=== PATIENT | male | born 1975 | race Caucasian/White ===

== ENCOUNTER 2016-05-11 17:54 | Emergency (ER) | payer OTHER ==
[~2016-05-11] VITALS: Ht 172.7 cm; Wt 73.9 kg
[2016-05-11] MEDS ORDERED: SINGULAIR10 MG PO (18:51)
[2016-05-11] MEDS ORDERED: FLONASE 50 MCG16 GM (18:52)
--- NOTE | 2016-05-11 19:17 | [facility] Report ---
History of Present Issue Date/Time Seen by Provider 05/11/16 2947 Visit Reason Pt arrived:Walked Presenting Problem:c/o flu like symptoms x 1 day Location if Accident: Onset of symptoms date/time:/ or onset unknown for:MEDICAL HX UNKNOWN Have you (or family members/close friends) recently traveled outside the [place]? N If Yes, where/when: Have you had exposure to infectious disease within the past month? TB? Other? Specify: c/o fever, bodyaches, chills, sore throat starting late last night. Not sure how high fever is, hasn't checked. Denies cough. Started to feel nauseated when eating earlier today so just didn't eat anymore and nausea resolved. Advil helped this morning but just had 2 hours ago and hasn't helped. No known sick contacts. Pain worse w/ swallowing. Denies any difficulty swallowing, "just pain " Source patient Exam Limitations no limitations ALLERGIES Coded Allergies: No Known Allergies (05/11/16) Home Medications Reported Medications Montelukast Sodium (Singulair) 10 MG PO QHS Fluticasone Propionate (Flonase 50 Mcg Nasal [place]) 1 SPRAY NA BID History Medical History General Diabetes? No Immunization HX DT/Tetanus Unknown Surgical Hx Previous Surgery?Y appedectomy Social History Smoking Hx Smoker: Never Smoker Tobacco: No Alcohol Alcohol: No Review of Systems All Other Systems Reviewed and Negative Constitutional see HPI, chills, malaise Eyes denies no symptoms reported ENT see HPI. denies: ear pain, nose congestion. Respiratory see HPI, denies shortness of breath Cardiovascular denies no symptoms reported Gastrointestinal see HPI, denies vomiting Musculoskeletal see HPI Skin denies rash Psychiatric/Neurological headache Physical Exam Vital Signs Vital Signs Date Time Temp Pulse Resp B/P Pulse O2 O2 Flow FiO2 Ox Delivery Rate 05/11 2046 100.1 101 16 125/80 95 05/11 1848 101.7 119 20 141/94 100 General Appearance no apparent distress, obviously doesn't feel well, nearly asleep in waiting room, immediately laid down on exam table and closed eyes when entered room Eye Exam - bilateral eye normal exam Ear, Nose, Throat pharyngeal erythema, tonsillar exudate, bilateral EACs and TMs normal, normal nares Neck non-tender, supple Respiratory Status No: respiratory distress (no cough). Lung Sounds anterior: lungs clear. posterior: lungs clear. bilateral: lungs clear. Cardiovascular regular rate/rhythm, no murmur Neurologic alert Skin warm/dry Lymphatic anterior cervical lymph nodes swollen, < 1cm, soft, tender, mobile Medical Decision Making LABS/Meds/Orders Pt receiving controlled substance in ED? No Results/Orders Laboratory Tests 05/11/161916: Influenza Type A Ag NOT DETECTED, Influenza Type B Ag NOT DETECTED, Group A Strep Screen NOT DETECTED Current Medication Orders Sig/Jaki Start time Last Medication Dose Route Stop Time Status Admin Lidocaine HCl 0 .STK-MED ONE 05/11 2015 DC IJ Ceftriaxone Sodium 1 GM ONCE ONE 05/11 2014 DC 05/11 IM 05/11 Lidocaine HCl 2.1 ML ONCE ONE 05/11 2014 DC 05/11 IM 05/11 Ceftriaxone Sodium 0 .STK-MED ONE 05/11 2012 DC .ROUTE Ceftriaxone Sodium 0 .STK-MED ONE 05/11 2006 DC .ROUTE Lidocaine HCl 0 .STK-MED ONE 05/11 2005 DC IJ Acetaminophen 0 .STK-MED ONE 05/11 1933 DC PO Acetaminophen 1,000 MG ONCE ONE 05/11 1914 DC 05/11 PO 05/11 1915 193 Orders Procedure Date/time Status UTC STREP SCREEN 05/11 1916 Complete UTC FLU A,B 05/11 1916 Complete Progress UT Progress Notes Date 05/11/16 Time 2002 Comment Discussed neg flu and strep w/ pt. Concerned re; throat examine and symptoms. Pt reports "I never test positive day one". Offered to send throat culture but pt declined. No pharmacy open tonight. 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 Departure Departure Time of Disposition 2023 Disposition DC Home or Self Care(routine) Clinical Impression Primary Impression: Acute tonsillitis Qualifiers: Pharyngitis/tonsillitis etiology: unspecified etiology Qualified Code: J03.90 - Acute tonsillitis, unspecified Secondary Impressions: Fever Qualifiers: Fever type: unspecified Qualified Code: R50.9 - Fever, unspecified Condition STABLE Patient Instructions DI for Strep Throat Additional Instructions Based on your exam and symptoms, you are highly suspicious for strep throat Suggested strep culture, pt declined. Increase fluids Rest. Alternate tylenol/ibuprofen for pain/fever Cold liquids Sore throat lozenges FU immediately for any new or worsening symptoms FU if no noticeable improvement over the next 48 hours. Start antibiotic pills tomorrow. Discharge Counseling Counseled pt/family regarding diagnosis, test results, medications/RX, home care, follow up needs Prescriptions Current Visit Scripts AMOXICILLIN (Amoxicillin 875MG Tab) 875 MG PO BID #20 TAB at 9313
[2016-05-11 19:48] LABS: UTC STREP SCREEN NOT DETECTED (NOTDETECTED)
[2016-05-11] MEDS ORDERED: AMOXICILLIN875 MG PO (20:27)
[2016-05-11 20:47] VITALS: BP 125/80
== END 2016-05-11 20:48 | disposition home or self-care (01) ==
LOC: UTC 17:54
PROVIDERS: Nurse Practitioner Family
DX: J03.90 Acute tonsillitis, unspecified (principal)

== ENCOUNTER → 2017-02-25 | Outpatient (CLI) | payer OTHER ==
[~2017-02-25] MED LIST: AMOXICILLIN875 MG PO; FLONASE 50 MCG16 GM; SINGULAIR10 MG PO
[2017-02-25 15:46] LABS: HEMOGLOBIN 15.5 g/dL (14.1-18.0); LYMPH # 2.3 K/mm3 (0.7-4.5)
[2017-02-27 08:46] LABS: Vitamin D, 25-Hydroxy 20.1 ng/mL (30.0-100.0)
== END ==
LOC: LAB 15:30
PROVIDERS: Internal Medicine Adolescent Medicine
DX: E29.1 Testicular hypofunction (principal); R53.81 Other malaise